=== PATIENT | female | born 1980 | race Caucasian/White ===

== ENCOUNTER → 2018-03-08 07:40 | Outpatient (CLI) | payer OTHER, SELFPAY ==
[2018-03-12 13:35] LABS: HPV APTIMA, High Risk Negative (Negative)
== END ==
PROVIDERS: Referring Provider Nurse Practitioner Women's Health; Visit Provider Nurse Practitioner Women's Health
DX: Z12.4 Encounter for screening for malignant neoplasm of cervix (principal)
CPT/HCPCS: 88175; G0145

== ENCOUNTER → 2019-06-08 13:05 | Outpatient (CLI) | payer OTHER, SELFPAY ==
[2019-06-08 12:46] VITALS: BMI 31.1
--- NOTE | 2019-06-08 13:00 | ANTA_PTH ---
PATIENT: ELIZABETH VILLANUEVA LOC: [facility] U#:[id number] AGE/SX: 44/F ROOM: RE06/08/[address]: Dr. Kimberly Bejarano MD : 1980 BED: DIS: SPEC #: [id number] RECD: 06/08/19 17:08 STATUS: FERNANDEZ MELANIE #: [id number] MARGIE: 06/08/19 13:[address]: Kimberly Bejarano DEPT: SURGICAL PATHOLOGY RECD BY: Moy Philippe Tissues: Anal region Procedures: Surgery Specimen Level III HEADER OPERATION: Excision of anal tag PRE-OP DIAGNOSIS: Anal tag TISSUE SUBMITTED: Anal tag MICROSCOPIC DIAGNOSIS Anal tag, excision: Fibroepithelial polyp, mildly inflamed with hyperkeratosis. AM:tea 06/10/19 MICROSCOPIC DESCRIPTION Slides are reviewed. GROSS DESCRIPTION Received in fixative is one container labeled with the patient's name and designated anal tag. The specimen consists of an elongated raisinoid fragment of flowers tissue measuring 1.2 x 0.5 x 0.2 cm. The specimen is totally submitted in one cassette. / AM:tea 06/09/19 TC:1 CPT: 72259
== END ==
PROVIDERS: Referring Provider Surgery; Visit Provider Surgery
DX: K64.4 Residual hemorrhoidal skin tags (principal)
CPT/HCPCS: 88304

== ENCOUNTER → 2020-01-05 13:55 | Outpatient (CLI) | payer OTHER, SELFPAY ==
[2019-12-06 13:05] VITALS: BMI 31.1
--- NOTE | 2020-01-05 13:56 | US_ITS ---
STUDY: ULTRASOUND OF THE FEMALE PELVIS - COMPLETE REASON FOR EXAM: Female, 39 years old. BILATERAL PELVIC PAIN NUVA RING LMP: 12/23/2019 TECHNIQUE: Transabdominal real-time exam with erazo scale image documentation. Transvaginal exam was required for adequate visualization of the uterus and ovaries. TECHNICAL QUALITY: Adequate. COMPARISON: None. FINDINGS: The uterus is anteverted and is in a midline position. The uterus measures 8.1 x 4.5 x 3.5 cm. 1 cm nabothian cyst. The endometrium measures 4.5 mm in thickness, and is hyperechoic. Layer of anechoic fluid in the endometrial space. There is no demonstrated myometrial mass. I.U.D. - The patient does not have an I.U.D. The right ovary is visualized. The right ovary measures 3.5 x 3.0 x 2.0 cm. There is no right ovarian cyst or ovarian mass. There is no visualized right adnexal mass or complex lesion. There is normal arterial and normal venous vascularity. Dilated adnexal veins. The left ovary is visualized. The left ovary measures 1.7 x 1.6 x 1.3 cm. There is no left ovarian cyst or ovarian mass. There is no visualized left adnexal mass or complex lesion. There is normal arterial and normal venous vascularity. Dilated adnexal veins There is no fluid in the cul-de-sac. The pre void volume of the bladder was 474 ml. Polycystic ovary disease: No. US/Transvaginal Non- IMPRESSION: 1 cm nabothian cyst. Otherwise unremarkable uterus. Normal endometrial thickness. Small amount of anechoic fluid in the endometrial space. Normal ovaries bilaterally. No adnexal masses or substantial free fluid. Dilated bilateral adnexal veins, potential pelvic congestion syndrome. Electronically Signed: Shima Marks MD at 19:28 EDT , Service support ,
--- NOTE | 2020-01-05 13:56 | US_ITS ---
STUDY: ULTRASOUND OF THE FEMALE PELVIS - COMPLETE REASON FOR EXAM: Female, 39 years old. BILATERAL PELVIC PAIN NUVA RING LMP: 12/23/2019 TECHNIQUE: Transabdominal real-time exam with erazo scale image documentation. Transvaginal exam was required for adequate visualization of the uterus and ovaries. TECHNICAL QUALITY: Adequate. COMPARISON: None. FINDINGS: The uterus is anteverted and is in a midline position. The uterus measures 8.1 x 4.5 x 3.5 cm. 1 cm nabothian cyst. The endometrium measures 4.5 mm in thickness, and is hyperechoic. Layer of anechoic fluid in the endometrial space. There is no demonstrated myometrial mass. I.U.D. - The patient does not have an I.U.D. The right ovary is visualized. The right ovary measures 3.5 x 3.0 x 2.0 cm. There is no right ovarian cyst or ovarian mass. There is no visualized right adnexal mass or complex lesion. There is normal arterial and normal venous vascularity. Dilated adnexal veins. The left ovary is visualized. The left ovary measures 1.7 x 1.6 x 1.3 cm. There is no left ovarian cyst or ovarian mass. There is no visualized left adnexal mass or complex lesion. There is normal arterial and normal venous vascularity. Dilated adnexal veins There is no fluid in the cul-de-sac. The pre void volume of the bladder was 474 ml. Polycystic ovary disease: No. US/Pelvic (Non ) IMPRESSION: 1 cm nabothian cyst. Otherwise unremarkable uterus. Normal endometrial thickness. Small amount of anechoic fluid in the endometrial space. Normal ovaries bilaterally. No adnexal masses or substantial free fluid. Dilated bilateral adnexal veins, potential pelvic congestion syndrome. Electronically Signed: Shima Marks MD at 19:28 EDT , Service support ,
== END ==
PROVIDERS: Referring Provider Nurse Practitioner Women's Health; Visit Provider Nurse Practitioner Women's Health
DX: R10.2 Pelvic and perineal pain (principal)
CPT/HCPCS: 76830; 76856; 93976

== ENCOUNTER 2021-08-12 09:54 | Outpatient (CLI) | payer OTHER, SELFPAY | END 2021-08-12 23:59 | disposition home or self-care (01) | LOC: LABSPEC 08-13 09:55 | PROVIDERS: Visit Provider Nurse Practitioner Women's Health | DX: R30.9 Painful micturition, unspecified (principal) | CPT/HCPCS: 87086 ==

== ENCOUNTER → 2022-08-13 | Outpatient (CLI) | payer OTHER, SELFPAY ==
[2022-08-21 12:52] LABS: HPV APTIMA, High Risk Negative (Negative)
== END | disposition home or self-care (01) ==
PROVIDERS: Referring Provider Nurse Practitioner Women's Health; Visit Provider Nurse Practitioner Women's Health
DX: Z12.4 Encounter for screening for malignant neoplasm of cervix (principal)
CPT/HCPCS: 87624; 88175; G0145

== ENCOUNTER → 2023-09-23 | Outpatient (CLI) | payer OTHER, SELFPAY ==
--- NOTE | 2023-09-23 08:53 | US_ITS ---
STUDY: ULTRASOUND BREAST - RIGHT REASON FOR EXAM: Female, 43 years old. Abnormal screening mammogram. TECHNIQUE: Axial and longitudinal images of the RIGHT breast were performed with a high resolution ultrasound transducer. # OF IMAGES: 31 COMPARISON: Comparison is made with prior mammogram dated September 23, 2023. FINDINGS: RIGHT Breast: The upper outer quadrant of the right breast was examined with ultrasound. There is dense fibroglandular tissue. Routine annual mammographic follow-up recommended. US/Breast Limited Unilateral IMPRESSION: Fibroglandular tissue is seen in the right axillary region. ASSESSMENT CATEGORY: BIRADS Category 2: Benign. A letter regarding these results will be sent to the patient by the facility within 30 days. Electronically Signed: Raúl Thompson MD at 9:42 EDT ,
--- NOTE | 2023-09-23 08:53 | US_ITS ---
STUDY: ULTRASOUND BREAST - LEFT REASON FOR EXAM: Female, 43 years old. Abnormal screening mammogram. TECHNIQUE: Axial and longitudinal images of the LEFT breast were performed with a high resolution ultrasound transducer. # OF IMAGES: 32 COMPARISON: Comparison is made with prior mammogram done earlier today. FINDINGS: LEFT Breast: The upper outer quadrant of the left breast was examined with ultrasound. There is fibroglandular tissue. No sonographic abnormality is seen. US/Breast Limited Unilateral IMPRESSION: No sonographic abnormality is seen. ASSESSMENT CATEGORY: BIRADS Category 1: Negative. A letter regarding these results will be sent to the patient by the facility within 30 days. Electronically Signed: Raúl Thompson MD at 9:47 EDT ,
--- NOTE | 2023-09-23 08:53 | BI_ITS ---
MAMMOGRAPHY - BILATERAL DIAGNOSTIC REASON FOR EXAM: Female, 43 years old. Abnormal screening mammogram. PERTINENT HISTORY: Non-contributory. Patient is currently on spironolactone. TECHNIQUE: Compression mediolateral oblique and craniocaudad views views of both breasts were obtained. CAD: Full Field Digital Mammography with Computer Added Detection was performed. COMPARISON: Comparison is made with prior outside examination dated September 01, 2022. FINDINGS: Breast Composition: The breasts are heterogeneously dense, which may obscure small masses. Breast tissue has increased as compared to prior study. There are no dominant masses or suspicious calcifications. Breast tissue is seen in the upper outer quadrants of both breasts. Ultrasound correlation recommended. No other significant abnormalities are identified. BI/DIAG MAMM W/CAD, BILAT IMPRESSION: Increased bilateral breast tissue as compared to prior study most likely secondary to medication. Sonographic correlation of the upper outer quadrants of both breasts recommended. One year follow-up recommended. (A) ASSESSMENT CATEGORY: BIRADS Category 0: Incomplete. Need additional imaging evaluation. A letter regarding these results will be sent to the patient by the facility within 30 days. Approximately 10% of breast cancers are not detected by mammography. A normal mammogram should not delay biopsy of a clinically suspicious abnormality. Electronically Signed: Raúl Thompson MD at 10:08 EDT ,
== END | disposition home or self-care (01) ==
DX: R92.8 Other abnormal and inconclusive findings on diagnostic imaging of breast (principal)
CPT/HCPCS: 76642; 77062; 77066; G0279

== ENCOUNTER → 2023-09-25 | Outpatient (CLI) | payer OTHER, SELFPAY ==
--- NOTE | 2023-09-25 | EMB_PTH ---
PATIENT: ELIZABETH VILLANUEVA [id number] AGE/SX: 43/F ROOM: RE09/25/[address]: Dr. Becca Gonzalez DO : 1980 BED: DIS: 09/25/2023 SPEC #: [id number] RECD: 09/25/23 16:28 STATUS: FERNANDEZ PETERSONJose #: [id number] MARGIE: 09/25/23 00:[address]: Becca Gonzalez DEPT: SURGICAL PATHOLOGY RECD BY: Geovany De Jesus ENTERED: 09/28/23 10:52 SP TYPE: ENDOM BX/C JOVANI DR: No Primary Care Phys Tissues: Endometrium, NOS Procedures: Surgery Specimen Level IV HEADER OPERATION: Endometrial biopsy PRE-OP DIAGNOSIS: Abnormal uterine bleeding TISSUE SUBMITTED: Endometrial lining MICROSCOPIC DIAGNOSIS Endometrium, biopsy: Transitional endometrium with glandular and stromal breakdown. Rare fragments of benign endocervix. AM/mr 09/29/2023 MICROSCOPIC DESCRIPTION Slides are reviewed. GROSS DESCRIPTION Received in fixative is one container labeled with the patient's name and designated Endometrial lining. The specimen consists of multiple irregular fragments of light flowers soft tissue that in aggregate measure 3.0 x 1.0 x 0.25 cm. The specimen is totally submitted in one cassette. 09/28/2023 TC:5 CPT:82227
[2023-09-28 21:07] LABS: Chlamydia By Nucleic Acid AMP Negative (Negative); Gonococcus By Nucleic Acid AMP Negative (Negative)
== END | disposition home or self-care (01) ==
LOC: LABSPEC 16:33
PROVIDERS: Referring Provider Obstetrics & Gynecology; Visit Provider Obstetrics & Gynecology
DX: Z11.3 Encounter for screening for infections with a predominantly sexual mode of transmission (principal); N93.9 Abnormal uterine and vaginal bleeding, unspecified
CPT/HCPCS: 87491; 87591; 88305

== ENCOUNTER → 2024-09-26 | Outpatient (CLI) | payer OTHER, SELFPAY ==
--- NOTE | 2024-09-26 12:15 | BI_ITS ---
EXAM: SCRN MAMM (CAD)W/CARI BILAT DATE: 09/26/2024 CLINICAL HISTORY: F, Age 44 y/o , SCREENING BREAST CANCER RISK ASSESSMENT: Has not been calculated. TECHNIQUE: Bilateral screening digital breast tomosynthesis with 2D and 3D images. Computer aided detection. COMPARISON: Prior exam(s) dated 09/16/2023 and 09/01/2022. FINDINGS: TISSUE DENSITY: The breast tissue is composed of scattered area of fibroglandular density. Bilateral Breast Mammographic Findings: No suspicious masses, suspicious cluster of microcalcifications, architectural distortion or secondary sign of malignancy is identified in either breast. Stable lobulated nodular masslike densities are seen in both breasts. A benign-appearing macrocalcification is seen in the right breast. BI/SCRN MAMM (CAD)W/CARI BILAT IMPRESSION: OVERALL FINAL ASSESSMENT: BIRADS 2 BENIGN FINDING RECOMMENDATION: Routine annual follow-up in 1 Year A letter with findings and recommendations will be mailed to the patient. Reading Location: [id number]
== END | disposition home or self-care (01) ==
PROVIDERS: Referring Provider Specialist; Visit Provider Specialist
DX: Z12.31 Encounter for screening mammogram for malignant neoplasm of breast (principal)
CPT/HCPCS: 77063; 77067